=== PATIENT | female | born 1960 | race Caucasian/White ===

== ENCOUNTER → 2024-01-05 11:41 | Outpatient (REF) | payer OTHER, SELFPAY | LOC: HWRAD 11:41 | PROVIDERS: ATTENDING PHYSICIAN Family Medicine | DX: M54.50 Low back pain, unspecified (principal); M25.561 Pain in right knee; M25.562 Pain in left knee | CPT/HCPCS: 72110; 73562 ==

== ENCOUNTER → 2024-03-11 16:34 | Outpatient (REF) | payer OTHER, SELFPAY | LOC: PAVMRI 16:34 | PROVIDERS: ATTENDING PHYSICIAN Student in an Organized Health Care Education/Training Program; FAMILY PHYSICIAN Family Medicine | DX: S92.354G Nondisplaced fracture of fifth metatarsal bone, right foot, subsequent encounter for fracture with delayed healing (principal); M54.50 Low back pain, unspecified | CPT/HCPCS: 72148; 73718 ==

== ENCOUNTER → 2024-03-19 14:54 | Outpatient (REF) | payer OTHER, SELFPAY | LOC: HWWDC 14:54 | PROVIDERS: ATTENDING PHYSICIAN Obstetrics & Gynecology; FAMILY PHYSICIAN Family Medicine; REFERRING PHYSICIAN Internal Medicine Hematology & Oncology | DX: Z12.31 Encounter for screening mammogram for malignant neoplasm of breast (principal) | CPT/HCPCS: 77063; 77067 ==

== ENCOUNTER → 2024-05-24 14:19 | Outpatient (REF) | payer OTHER, SELFPAY ==
[2024-05-24 15:16] LABS: ALT (SGPT) 22 U/L (0-35); AST (SGOT) 31 U/L (14-36); Albumin 4.8 g/dl (3.5-5.0); Alkaline Phosphatase 67 U/L (38-126); Blood Urea Nitrogen 12 mg/dl (7-17); Calcium 9.9 mg/dl (8.4-10.2); Carbon Dioxide 28 mmol/L (22-30); Chloride 101 mmol/L (98-107); Glucose 95 mg/dl (70-99); Potassium 4.3 mmol/L (3.5-5.1); Sodium 141 mmol/L (135-145); Total Bilirubin 0.4 mg/dl (0.2-1.3); Total Protein 7.3 g/dl (6.3-8.2); eGFR > 60.00
== END ==
LOC: RAD 14:19
PROVIDERS: ATTENDING PHYSICIAN Family Medicine
DX: R10.84 Generalized abdominal pain (principal); R50.9 Fever, unspecified
CPT/HCPCS: 36415; 74177; 80053; Q9967

== ENCOUNTER → 2024-06-07 16:22 | Outpatient (REF) | payer OTHER, SELFPAY | LOC: RAD 16:22 | PROVIDERS: ATTENDING PHYSICIAN Orthopaedic Surgery Orthopaedic Surgery of the Spine; FAMILY PHYSICIAN Family Medicine | DX: R29.818 Other symptoms and signs involving the nervous system (principal) | CPT/HCPCS: 72131 ==

== ENCOUNTER 2024-09-21 08:00 | Emergency (ER) | payer OTHER, SELFPAY ==
[2024-09-21 08:07] VITALS: BP 117/74
--- NOTE | 2024-09-21 08:37 | ED.GENMED ---
History of Present Illness
General
Chief Complaint: Back Pain
Source: patient
Exam Limitations: none
Time Seen by Provider: 09/21/24 08:16
History of Present Illness
History of Present Illness:
64yoF with a history of osteoporosis presenting for evaluation of back pain. Patient was sitting in bed and watching TV 2 nights ago. She got out of bed and noticed that she had pain in her mid back. Pain has been constant since that time and is
worse with movement. Pain is worse on the right thoracic region. She also has some discomfort in her abdomen which she is unsure is related to IBS. She does not like taking medications. She took 1 dose of Tylenol yesterday morning and 1 dose of
Aleve last night without much relief. Her current pain is rated as an 8/10 in severity. She has a 'bad back' in her lower back but her current pain is different. She denies any fevers, incontinence, dysuria. No pain, paresthesias, weakness in
the lower extremities. 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
Past History
Past History
ED Past Medical History: Valvular disease (Mitral regurg) and Other (IBS)
ED Past Surgical History: Other (Lumpectomy, MOHS)
Social History
Tobacco: Non-smoker
Alcohol: None
Drug: None
Personal:
Living: with family
Family History
Family History: Other (n/c)
Phy Exam
General Physical Exam
General Presentation: well appearing
General age: appears stated age
General Skin: warm and dry
General Habitus: normal
General Mental: alert
ENT Exam
ENT Exam: normocephalic
Pulmonary Exam
Pulmonary Exam: lungs clear, no respiratory distress, no rales, no crackles and no rhonchi
Gastrointestinal Exam
Gastrointestinal Exam: soft, non distended and other (+Mild generalized abdominal tenderness. Abdomen soft, non-distended. No rebound or guarding. )
Neurological Exam
Neurological Exam: alert and no motor deficits (5/5 strength in bilateral lower extremities)
Jonathan Coma Scale
Eye Opening: Spontaneous
Verbal Response: Oriented
Motor Response: Obeys Commands
GCS Total Score: 15
Musculoskeletal Exam
Musculoskeletal Exam: other (+Tenderness at the midline and R paraspinal aspect of the thoracic region. No skin changes. )
Skin Exam
Skin Exam: normal color and warm/dry
Course
Orders/Labs/Results
Orders:
Orders
09/21/24 08:32
Ketorolac [Toradol] 15 mg IV NOW STA
09/21/24 08:33
CT Abd/pelvis W Iv Cont Urgent
Comment:
Reason For Exam: Mid back pain, R flank pain radiating to abdomen
09/21/24 08:52
Complete Blood Count/With Diff Urgent
Comprehensive Metabolic Panel Urgent
Lipase Urgent
Comment: ADD ON
Urinalysis Reflex To Culture Urgent
Date Specimen was Collected: 09/21/24
Time Specimen was Collected: 08:47
09/21/24 09:13
Add On- LAB Urgent
Tests Added?: lipase
09/21/24 11:16
Ketorolac [Toradol] 15 mg IV NOW STA
Lidocaine [Lidocaine 4% Patch] 2 patch TOPICAL ONCE ONE
Apply Lidocaine patch(s) to:: mid back
09/21/24 08:52
09/21/24 08:52
Vital Signs
Initial and Last Documented VS:
Initial Vital Signs
Temp Pulse Resp BP Pulse Ox
98.0 F 78 16 117/74 98
09/21/24 08:07 09/21/24 08:07 09/21/24 08:07 09/21/24 08:07 09/21/24 08:07
Last Documented Vital Signs
Temp Pulse Resp BP Pulse Ox
97.9 F 71 14 131/84 98
09/21/24 10:28 09/21/24 10:28 09/21/24 10:28 09/21/24 10:28 09/21/24 10:28
MDM/Problems Addressed
Differential Diagnosis Includes:
64yoF here with mid back pain x 2 days. Denies trauma. Worse with movement. Radiates to the abdomen. No red flags in history including no fevers, saddle anesthesia, incontinence. VSS. There is reproducible thoracic tenderness on exam. Differential
diagnosis includes but is not limited to: muscular strain, fracture, kidney stone, UTI, pyelonephritis
Initial ED plan: Check abdominal labs, UA, and CT abdomen. IV Toradol for pain.
*Critical Care Note
Total Time (30-74mins, 75-104mins- exclusive of procedures): Not Applicable
Update Note
Update Note:
Labs unremarkable including normal white count and renal function. UA bland without signs of infection or microscopic hematuria. CT is negative for acute findings. There is a stable mild compression fracture of T11 which is unchanged from prior
imaging. No new fractures. Prominent bilateral periuterine vessels incidentally seen which can be seen with pelvic congestion syndrome. She denies any issues with chronic pelvic pain. Suspect muscular pain. No indication for hospitalization at
this time. Patient has had slight improvement with Toradol. Offered prescription for oxycodone which she declines stating that is too strong for her. Recommended lidocaine patch, Tylenol, ibuprofen. Will also trial Robaxin. She was advised to
follow-up with her PCP, orthopedics, and pain management. ED return precautions discussed. She was discharged in stable condition.
ED Attending Note
-
Portions of this chart may have been created with voice recognition software.� Occasional wrong word or��sound alike� substitutions may have occurred due to the inherent limitations of voice recognition software.
Discharge Plan
Departure
Patient Disposition: Home (Routine Discharge)
Date of Disposition: 09/21/24
Time of Disposition: 11:16
Patient with high blood pressure during this ER visit?: No
Discharge Problem:
Acute thoracic back pain
Instructions: Back Pain
Prescriptions:
New
methocarbamol 500 mg tablet
500 mg PO Q6H PRN (Reason: muscle spasms) Qty: 20 0RF
No Action
multivitamin [Daily Multiple] 1 EACH tablet
1 ea PO DAILY
cetirizine 10 MG tablet
10 mg PO DAILY
risedronate [Actonel] 35 MG tablet
35 mg PO WEEKLY
Referrals:
Giuseppe Toribio MD [Active] -
Angelika Huerta MD [Family Provider] -
Activity Restrictions/Additional Instructions:
Take Tylenol 650mg and ibuprofen 400mg every 6 hours as needed for pain. Use lidocaine patches daily (12 hours on, 12 hours off). Take Robaxin (muscle relaxer) as needed.
Please follow-up with your family doctor, orthopedics, and pain management. Return to the ER with any new or worsening symptoms.
Interventions
Interventions:
*Risk Screen - Suicide Last Done: 09/21/24 08:07
*General Assessment Last Done: 09/21/24 08:49
*Neglect/Abuse Screening Last Done: 09/21/24 08:07
*ED COVID-19 Vaccine History Last Done: 09/21/24 08:49
*Nursing Disposition Last Done: 09/21/24 11:38
ED-Musculoskeletal Assessment Last Done: 09/21/24 08:49
Discharge Date and Time
Discharge Date/Time: 09/21/24 11:46
Print Language: GERMAN
[2024-09-21 08:49] VITALS: BMI 24.5
[2024-09-21] MEDS: TORADOL 15 MG IV ×2 (08:53→11:33)
[2024-09-21 09:11] LABS: % Basophils 0.6 % (0-2); % Eosinophils 0.8 % (0-6); % Immature Granulocytes 0.2 % (0-0.5); % Lymphocytes 24.1 % (20.5-51.1); % Monocytes 6.1 % (1.7-9.3); % Neutrophils 68.2 % (42.2-75.2); Absolute Lymphocytes 1.2 10^3/uL (1.2-3.4); Absolute Monocytes 0.3 10^3/uL (0.1-0.6); Absolute Neutrophils 3.4 10^3/uL (1.4-6.5); Hemoglobin 12.9 g/dL (12.0-16.0); Mean Corp Hgb Conc. 33.1 g/dL (33.0-37.0); Mean Corpuscular Hgb 30.1 pg (27.0-31.0); Mean Corpuscular Volume 90.9 fL (81.0-99.0); Mean Platelet Volume 9.4 fL (7.4-10.4); Nucleated Red Blood Cells % 0 %; Platelet Count 228 10^3/uL (130-400); Red Blood Cell Count 4.29 10^6/uL (4.20-5.40); Red Cell Dist. Width 14.1 % (11.5-14.5); White Blood Cell Count 4.9 10^3/uL (4.8-10.8)
[2024-09-21 09:24] LABS: ALT (SGPT) 16 U/L (0-35); AST (SGOT) 25 U/L (14-36); Albumin 4.5 g/dl (3.5-5.0); Alkaline Phosphatase 73 U/L (38-126); Blood Urea Nitrogen 15 mg/dl (7-17); Calcium 9.5 mg/dl (8.4-10.2); Carbon Dioxide 30 mmol/L (22-30); Chloride 102 mmol/L (98-107); Estimated Creatinine Clearance 68 ml/min; Glucose 95 mg/dl (70-99); Potassium 4.2 mmol/L (3.5-5.1); Sodium 139 mmol/L (135-145); Total Bilirubin 0.4 mg/dl (0.2-1.3); eGFR > 60.00
[2024-09-21 09:34] LABS: Lipase 84 U/L (23-300)
[2024-09-21 09:42] LABS: Urine Albumin Trace (Neg - Trace); Urine Bilirubin Negative (Negative); Urine Character Clear (Clear); Urine Color Yellow; Urine Glucose Negative (Negative); Urine Ketone Negative (Negative); Urine Leukocyte Negative (Negative); Urine Nitrite Negative (Negative); Urine Occult Blood Negative (Negative); Urine Urobilinogen Negative (Neg - 1+)
[2024-09-21 10:28] VITALS: BP 131/84
[2024-09-21] MEDS: LIDOCAINE 4% PATCH 2 PATCH TOPICAL (11:33)
== END 2024-09-21 11:46 | disposition home or self-care (01) ==
LOC: EMR 08:00
PROVIDERS: Physician Assistant; EMERGENCY PHYSICIAN Emergency Medicine; FAMILY PHYSICIAN Family Medicine
DX: M54.6 Pain in thoracic spine (principal); K58.9 Irritable bowel syndrome, unspecified; I34.0 Nonrheumatic mitral (valve) insufficiency; M81.0 Age-related osteoporosis without current pathological fracture
CPT/HCPCS: 99284; 96374; 96376; 74177; 80053; 81003; 83690; 85025; Q9967

== ENCOUNTER → 2024-10-05 08:10 | Outpatient (REF) | payer OTHER, SELFPAY | LOC: MRI 3T 08:10 | PROVIDERS: ATTENDING PHYSICIAN Family Medicine | DX: M54.14 Radiculopathy, thoracic region (principal) | CPT/HCPCS: 72146 ==

== ENCOUNTER 2024-10-29 21:29 | Inpatient (IN) | payer OTHER, SELFPAY ==
[2024-10-29 11:33] VITALS: BP 125/84
[2024-10-29 12:20] LABS: % Basophils 0.7 % (0-2); % Eosinophils 0.3 % (0-6); % Immature Granulocytes 0.2 % (0-0.5); % Lymphocytes 29.4 % (20.5-51.1); % Monocytes 5.6 % (1.7-9.3); % Neutrophils 63.8 % (42.2-75.2); Absolute Lymphocytes 1.7 10^3/uL (1.2-3.4); Absolute Monocytes 0.3 10^3/uL (0.1-0.6); Absolute Neutrophils 3.8 10^3/uL (1.4-6.5); Hematocrit 37.3 % (37.0-47.0); Hemoglobin 12.6 g/dL (12.0-16.0); Mean Corp Hgb Conc. 33.8 g/dL (33.0-37.0); Mean Corpuscular Hgb 30.7 pg (27.0-31.0); Mean Corpuscular Volume 90.8 fL (81.0-99.0); Mean Platelet Volume 9.8 fL (7.4-10.4); Nucleated Red Blood Cells % 0 %; Platelet Count 262 10^3/uL (130-400); Red Blood Cell Count 4.11 10^6/uL (4.20-5.40); Red Cell Dist. Width 13.8 % (11.5-14.5); White Blood Cell Count 5.9 10^3/uL (4.8-10.8)
[2024-10-29 12:30] LABS: ALT (SGPT) 21 U/L (0-35); AST (SGOT) 26 U/L (14-36); Albumin 4.5 g/dl (3.5-5.0); Alkaline Phosphatase 74 U/L (38-126); Blood Urea Nitrogen 14 mg/dl (7-17); Calcium 10.8 mg/dl (8.4-10.2); Carbon Dioxide 29 mmol/L (22-30); Chloride 100 mmol/L (98-107); Glucose 105 mg/dl (70-99); Potassium 4.2 mmol/L (3.5-5.1); Sodium 137 mmol/L (135-145); Total Bilirubin 0.4 mg/dl (0.2-1.3); Total Protein 7.1 g/dl (6.3-8.2); eGFR > 60.00
[2024-10-29 14:27] LABS: Urine Albumin 2+ (Neg - Trace); Urine Bilirubin Negative (Negative); Urine Character Clear (Clear); Urine Color Yellow; Urine Glucose Negative (Negative); Urine Ketone Negative (Negative); Urine Leukocyte Negative (Negative); Urine Nitrite Negative (Negative); Urine Occult Blood 4+ (Negative); Urine Specific Gravity 1.015 (<1.030); Urine Urobilinogen Negative (Neg - 1+)
[2024-10-29 14:33] LABS: Urine Red Blood Cell 21-25 /HPF (0-2); Urine Squamous Cell 0-2 /LPF (Few); Urine White Cell 0-2 /HPF (0-5)
--- NOTE | 2024-10-29 15:22 | ED.GENMED ---
History of Present Illness
General
Chief Complaint: Back Pain
Source: patient and spouse
Exam Limitations: none
Time Seen by Provider: 10/29/24 14:45
Nursing documentation reviewed up to this point in time: agreed with
History of Present Illness
History of Present Illness:
Patient presents to ED secondary to worsening mid back pain this afternoon, when she reached for an object. Patient unfortunately has had ongoing back pain since August. Recent MRI spine revealed new T8 compression fracture. Patient does have
history of chronic back pain secondary to stenosis along with osteoporosis. Denies fever or chills. Denies urinary or bowel incontinence. Denies loss of sensation. Patient is reporting intermittent lower leg weakness, which has been chronic.
Patient was evaluated by Dr. Patel, back/pain management physician last week. Back brace as well as different medications were recommended, which not has helped with her pain. Patient has been told that she is not a candidate for surgical
intervention, secondary to severe osteoporosis.
Past History
Past History
ED Past Medical History: Valvular disease (Mitral regurg) and Other (IBS)
ED Past Surgical History: Other (Lumpectomy, MOHS)
Social History
Tobacco: Non-smoker
Alcohol: None
Drug: None
Personal:
Living: with family
Family History
Family History: Other (n/c)
Review of Systems
Review of Systems
Allergies reviewed?: Yes
All Other Systems: ROS reviewed and negative except as documented in HPI and ROS
Constitutional: Reports no symptoms; Denies fever or chills
Respiratory: Reports no symptoms; Denies trouble breathing
Cardiac: Reports no symptoms; Denies chest pain
ABD/GI: Reports no symptoms
: Reports no symptoms
Musculoskeletal: Reports neck pain and back pain
Skin: Reports no symptoms
Neurological: Reports weakness; Denies dizzy, headache or numbness
Phy Exam
Physical Exam
Physical Exam:
Physical Exam
General: mild painful distress, not acutely ill. afebrile
Head: nc/at. eommi
Neck: supple. normal range of motion. no midline tenderness. mild tenderness noted at base.
Heart: s1/s2 regular rate and rhythm, no murmur.
Lungs: no acute respiratory distress. clear bilaterally
Abdomen: normal bowel sounds. not tender.
Back: no midline tenderness
Neuro: alert and oriented x 3. no focal neurological deficits. normal gait.
Skin: no rash
Psychiatric: well kept. interactive and cooperative
Extremities: no edema. no calf tenderness.
Course
Orders/Labs/Results
Orders:
Orders
10/29/24 12:05
Complete Blood Count/With Diff Urgent
Comprehensive Metabolic Panel Urgent
Magnesium Urgent
Comment: ADD ON
Phosphorus Urgent
Comment: ADD ON
10/29/24 14:00
Urinalysis Reflex To Culture Urgent
Date Specimen was Collected: 10/29/24
Time Specimen was Collected: 11:38
Urine Microscopic Reflex Cult Urgent
10/29/24 15:13
HYDROmorphone [Dilaudid] 0.25 mg IV NOW STA
Ketorolac [Toradol] 30 mg IV NOW STA
US Renal Only W/O Bladder Urgent
Comment:
Reason For Exam: hematuria with flank pain
10/29/24 17:11
CT Abd/pel Without Iv Or Oral Urgent
Comment:
Reason For Exam: left flank pain with hematuria, w abnormal US
HYDROmorphone [Dilaudid] 0.5 mg IV NOW STA
10/29/24 20:26
Aztreonam [Azactam] 1,000 mg IV NOW STA
Sterile Water [Sterile Water For Injection] 10 ml IV NOW STA
10/29/24 20:30
Urine Culture Routine
CLAUDIA Source: Urine
Specimen Description:
Obtained by: Bladder
Date Specimen was Collected: 10/30/24
Time Specimen was Collected: 05:09
0.9% Sodium Chloride 1000 ml [Nss] 1,000 ml IV 100 mls/hr
10/29/24 20:35
Add On- LAB Urgent
Tests Added?: mag, phos
10/29/24 20:38
Admit/Transfer Patient As Directed
Co-Sign Provider:
Level of Care: Inpatient admission
Assign to:: Medical/Surgical
Physician / Group: abhinav bennett
Diagnosis: left ureteral colic conc for obstructing uropathy
Reason for Hospitalization: left ureteral colic conc for obstructing uropathy
Expected length of stay greater than two midnights?: Yes
ELOS- Estimated Length of Stay in days: 3
I certify the patient meets the requirements for IP care: Yes
Code Status As Directed
Resuscitation Status: Full Code
10/29/24 20:45
PRN Pain Medication Management As Directed
May give lesser potent ordered pain med per pt: Yes
preference::
Protocol:: Medication orders for pain may be administered in a
manner that supports deferring to patient preference
when the pt is:
- Requesting an ordered lesser potent pain medication.
Least to most potent pain medications are defined
as: acetaminophen < NSAID < tramadol < opioids
(morphine, oxycodone, hydromorphone).
- Requesting a lesser dose of the same medication IF
ORDERED.
- Requesting a less intrusive route of administration
if both routes are prescribed by the provider (PO <
IV).
10/29/24 20:46
UROLOGY CONSULT Routine
Consulting Provider: Sergo Franco
Was physician already notified: Yes
Comment: Left ureteral colic concern for obstructive uropathy
10/29/24 20:59
Tamsulosin [Flomax] 0.4 mg PO NOW STA
10/29/24 21:57
Acetaminophen [Tylenol] 650 mg PO Q4HPRN PRN
HYDROmorphone [Dilaudid] 0.5 mg IV Q4HPRN PRN
HYDROmorphone [Dilaudid] 1 mg IV Q4HPRN PRN
Ondansetron Injectable [Zofran] 4 mg IV Q6HPRN PRN
Polyethylene Glycol Powder [Miralax] 17 grams PO DAILYPRN PRN
Temazepam [Restoril] 15 mg PO HSPRN PRN
10/29/24 21:57
Activity As Directed
Activity Level: As Tolerated
Intake/ Output As Directed
Frequency: Per unit guidelines
Pneumatic Compression Sleeves As Directed
Type: Knee high
Vital Signs As Directed
Frequency: Per unit guidelines
Weight As Directed
Frequency: Daily
Pt Eval And Treat Routine
Activity Level: As Tolerated
DX Deep Vein Thrombosis Video Routine
10/30/24 06:00
Aztreonam [Azactam] 1,000 mg IV Q8H
10/30/24 07:49
Cardiovascular Evaluation IN AM
Complete Blood Count/With Diff IN AM
Comprehensive Metabolic Panel IN AM
10/30/24 18:00
Ascorbic Acid [Vitamin C] 500 mg PO QPM
Calcium Carbonate [Oscal Chandan 500] 500 mg PO QPM
Cholecalciferol (Vitamin D3) [VITAMIN D3 (cholecalciferol)] 25 mcg PO QPM
Magnesium Oxide 250 mg PO QPM
Multivitamin [Theragran] 1 tablet PO QPM
Sennosides [Senokot] 17.2 mg PO QPM
Abnormal Lab Results
10/29/24 10/29/24
12:05 14:00
RBC 4.11 L 10^6/uL
(4.20-5.40)
Glucose 105 H mg/dl
(70-99)
Calcium 10.8 H mg/dl
(8.4-10.2)
Ur Occult Blood Reflex 4+ A
(Negative)
Urine RBC 21-25 A /HPF
(0-2)
Urine Albumin (Reflex) 2+ A
(Neg - Trace)
10/29/24 12:05
10/29/24 12:05
Vital Signs
Initial and Last Documented VS:
Initial Vital Signs
Temp Pulse Resp BP Pulse Ox
97.2 F 93 16 125/84 97
10/29/24 11:33 10/29/24 11:33 10/29/24 11:33 10/29/24 11:33 10/29/24 11:33
Last Documented Vital Signs
Temp Pulse Resp BP Pulse Ox
97.8 F 89 18 108/67 98
10/30/24 11:42 10/30/24 11:42 10/30/24 11:42 10/30/24 11:42 10/30/24 11:42
MDM/Problems Addressed
MDM/Problems Addressed:
Renal ultrasound reveals left calyceal dilation, suggestive of potential obstructive ureteral stone. As such, decision made to obtain CT abdomen pelvis, kidney stone protocol, with findings concerning for obstructive renal stone. In light of
patient's significant pain, now multifactorial, patient will be admitted for further evaluation and treatment.
*Critical Care Note
Total Time (30-74mins, 75-104mins- exclusive of procedures): Not Applicable
ED Attending Note
-
Portions of this chart may have been created with voice recognition software.� Occasional wrong word or��sound alike� substitutions may have occurred due to the inherent limitations of voice recognition software.
Discharge Plan
Departure
Patient Disposition: Admit
Date of Disposition: 10/29/24
Time of Disposition: 19:52
Admit to: Med/Surg
Presentation/result/management discussed w/ accepting MD/DO: Hospitalist
Discharge Problem:
Intractable back pain, Renal colic
Interventions
Interventions:
*Risk Screen - Suicide Last Done: 10/29/24 11:38
*General Assessment Last Done: 10/29/24 15:27
*Neglect/Abuse Screening Last Done: 10/29/24 11:38
*ED- Fall Risk Assessment Last Done: 10/29/24 15:27
*ED COVID-19 Vaccine History Last Done: 10/29/24 15:27
*Nursing Disposition Last Done: 10/29/24 21:50
ED-Musculoskeletal Assessment Last Done: 10/29/24 15:26
Discharge Date and Time
Discharge Date/Time: 10/29/24 21:50
[2024-10-29 15:26] VITALS: BMI 23.4
[2024-10-29] MEDS: DILAUDID 0.25 MG IV (15:38)
[2024-10-29] MEDS: TORADOL 30 MG IV (15:38)
[2024-10-29] MEDS: DILAUDID 0.5 MG IV ×2 (17:16→23:17)
[2024-10-29 17:57] VITALS: BP 120/76
--- NOTE | 2024-10-29 19:55 | HPS.HSE ---
Family Physician
-
Family Physician: Angelika Huerta MD
Chief Complaint
-
Left flank pain, hematuria, dysuria today
History of Present Illness
64-year-old female who states she has had ongoing back pain since August with recent MRI revealing a new T8 compression fracture. She reports she was squatting down to move her bathroom rug when she had a sudden left flank pain radiating around to
left front of her abdomen and across to the right side that caused her to scream in pain. She thought this was due to her T8 compression fracture she has had for the past 40 days however this was an 8 lower area. She is also complaining of dysuria
postvoiding and some slight hematuria while here in the ER. She has family history sister of renal calculi niece and nephew both with renal calculi. She denies fever, chills, nausea, vomiting, diarrhea, chest pain, palpitations, cough, shortness
of breath, rash. She has past medical history of T8 compression fracture, severe osteoporosis, spinal stenosis, insomnia
She was evaluated by Dr. Patel her back and pain management physician last week it was recommended she wear a back brace as well as different medication regimen which has not helped with her pain. She was told that she is not a candidate for
surgical intervention secondary to severe osteoporosis. In the ER she was noted to have The distal left ureter was difficult to visualize on the CT
Medical History
Past Medical History
Past Medical History: Reports Other
Additional Past Medical History:
Insomnia
T8 compression fracture
Severe osteoporosis
Osteopenia
Noninvasive ductal carcinoma left breast 2004
Past Surgical History: Reports Other
Additional Past Surgical History:
Noninvasive ductal carcinoma left breast 2004 status post lumpectomy
Social History
Tobacco: Non-smoker
Alcohol: Occasional (2 glasses of wine Monday and Monday)
Drug: None
Personal:
Living: With Family ()
Employment: Employed ([employer] is currently on FMLA due T8 compression fractures)
Family History
Family History: Other (Sister renal calculi, niece and nephew renal calculi)
Allergies / Home Medications
Allergies reflects when Allergies were last updated in [employer].
Home Medications with original date entered in [employer]
Allergy/Medication List:
Allergies
Allergy/AdvReac Type Severity Reaction Status Date / Time
cephalexin [From Keflex] Allergy Unknown Verified 09/21/24 08:09
ciprofloxacin [From Cipro] Allergy Unknown Verified 09/21/24 08:09
ibuprofen [From Advil] Allergy Unknown Verified 09/21/24 08:09
lidocaine Allergy states Verified 10/29/24 20:31
gets dizzy
Sulfa (Sulfonamide Allergy Unknown Verified 09/21/24 08:09
Antibiotics)
Home Medications
ascorbic acid (vitamin C) 500 mg tablet (Vitamin C) 500 mg PO QPM 10/29/24
calcium carbonate 500 mg PO QPM 10/29/24
cholecalciferol (vitamin D3) 25 mcg (1,000 unit) tablet (Vitamin D3) 25 mcg PO QPM 10/29/24
magnesium oxide 250 mg PO QPM 10/29/24
melatonin 5 mg tablet 5 mg PO HSPRN PRN when temazepam not taken 10/29/24
polyethylene glycol 3350 17 gram oral powder packet (Miralax) 17 g PO DAILYPRN PRN constipation 10/29/24
sennosides 8.6 mg tablet (senna) 17.2 mg PO QPM 10/29/24
temazepam 15 mg capsule 15 mg PO HSPRN PRN sleep 10/29/24
therapeutic multivitamin 1 tab PO QPM 10/29/24
Review of Systems
-
History Source: Patient and Family ( at bedside)
A 12 point ROS was completed and negative except as noted: Yes
Constitutional: Denies Fever, Fatigue or Chills
EENT: Denies Sore Throat or Runny Nose
Respiratory: Denies Cough or Trouble Breathing
Cardiac: Denies Chest Pain, Diaphoresis, Palpitations or Syncope
Abdomen/GI: Reports Abdominal Pain (Left flank, left lateral abdomen over left ureter to suprapubic area); Denies Nausea, Vomiting, Diarrhea or Constipated
: Reports Dysuria (Today while in ER), Flank Pain (Left flank at level of T10) and Other (1 episode hematuria in ER); Denies Frequency, Incontinence, Difficulty Voiding or Urgency
Musculoskeletal: Denies Joint Pain or Edema
Skin: Denies Itching or Rash
Neurological: Denies Dizzy, Headache or Weakness
Endocrine: Reports No Symptoms
Hematologic/Lymphatic: Reports No Symptoms
Psych: Reports Calm
Physical Exam
Vital Signs
Vital Signs
Temp Pulse Resp BP Pulse Ox
97.2 F 89 15 120/76 99
10/29/24 11:33 10/29/24 17:57 10/29/24 17:57 10/29/24 17:57 10/29/24 17:57
Physical Exam
General: Conversant and Pain; No Fever or Chills
HEENT: NormoCephalic, Anicteric, Moist mucous membranes, PERRLA, [place] Conjunctivae and No Ptosis
Respiratory: Clear; No Wheezes, Rales or Rhonchi
Cardiac: S1/S2 and Regular Rhythm; No Murmur, Rub, Gallop or Peripheral Edema
Breast: Deferred by me
GI: Soft, Non Distended, Normal Bowel Sounds, Tender (Left flank, left lateral abdomen over left ureter to suprapubic area) and No Hepatosplenomegaly
Genito-urinary: Costovertebral angle tend (Left)
Musculoskeletal: No Clubbing, No Cyanosis, No Edema and Other (Chronic tenderness at T8 along nerve root pathway secondary to known compression fracture)
Skin: Warm and Dry; No Rash
Neuro: AO x 3, No Motor Deficits, Nonfocal/grossly intact, Cranial Nerves Intact and No Sensory Deficits; No Slurred Speech, Facial Droop, Tremors or Sedated
Laboratory Results
-
10/29/24 12:05
10/29/24 12:05
Laboratory Results
Total Bilirubin 0.4 mg/dl (0.2-1.3) 10/29/24 12:05
AST 26 U/L (14-36) 10/29/24 12:05
ALT 21 U/L (0-35) 10/29/24 12:05
Alkaline Phosphatase 74 U/L (38-126) 10/29/24 12:05
Impression/Plan
-
Impression/plan:
Observation MedSurg
# Left ureteral colic secondary to left obstructive uropathy
-Consult Dr. Franco urology
-IV Azactam due to multiple drug allergies
-IV NSS 100 cc/h
-Tylenol as needed fever
-IV Dilaudid as needed pain, Zofran as needed nausea
-Follow CBC, CMP, urine culture
Renal ultrasound:Mild diffuse left calyceal dilation, which raises the possibility of obstructive uropathy.
No definite nephrolith identified within the left kidney, with a 2 mm nephrolith seen within the upper pole the left kidney on prior CT examination.
These findings raise the possibility of an obstructing left ureteral calculus.
CT abdomen pelvis without IV or oral contrast:
1. Mild left pelvicalyceal and ureteral dilation. 2 mm nephrolith seen in the upper pole the left kidney on CT of September 21, 2024 is no longer present.
Findings suggest a left ureteral calculus. The distal left ureter is difficult to visualize and there are multiple calcifications within the left pelvis.
One of these calcifications is likely a distal left ureteral calculus.
If more confident demonstration of left distal ureteral calculus is desired, consideration could be given to additional delayed CT imaging after intravenous administration of IV contrast agent.
2. Tiny 1 mm nephrolith in the upper pole the right kidney. No evidence for right ureteral calculus.
3. Grade 2 spondylolisthesis at L4-5, stable with left-sided pars defect and right-sided pedicle defect. Stable mild anterior compression deformity of T11 vertebral body.
#T8 compression fracture
#Chronic severe osteoporosis/osteopenia
Dr. Patel her back and pain management physician last week it was recommended she wear a back brace as well as different medication regimen
-Patient takes calcium carbonate 500 mg every afternoon with vitamin D3 25 mcg p.o. every afternoon
#Hypomagnesemia
-Continue Mag-Ox to 50 mg p.o. every afternoon
-Check mag level
#Insomnia
-Patient takes temazepam
DVT prophylaxis
SCDs
Full code
--- NOTE | 2024-10-29 20:23 | W.PN.UPDATE ---
Update Note
Progress Note Update
This note serves as an addendum to the H&P by washroom operator WON
Marleen JUAREZ
HPI
64F HX IBS, valvular heart dz seen at ER;
- pw o worsening mid back pain this afternoon, when she reached for an object.
- report ongoing back pain since August.
- Recent MRI spine revealed new T8 compression fracture.
- HX chronic back pain secondary to stenosis along with osteoporosis.
ROS
Denies fever or chills.
Denies urinary or bowel incontinence.
Denies loss of sensation.
Patient is reporting intermittent lower leg weakness, which has been chronic.
Patient was evaluated by Dr. Patel, back/pain management physician last week. Back brace as well as different medications were recommended, which not has helped with her pain.
Patient has been told that she is not a candidate for surgical intervention, secondary to severe osteoporosis.
VSS
10/29/24
11:33
Temp 97.2 F
Pulse 93
Resp Rate 16
Blood pressure 125/84
SaO2 97
Oxygen Mode of Delivery Room air
PE
Gen: in pain distress, not toxic loking
HEENT: anicteric
Neck: supple
Lungs: clear bilaterally
Cor: RRR S1 S2
Abdomen: soft, NT, NG
:Lt renal angle tenderness
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
MS: no edema
Psych: interactive , cooperative
Laboratory Tests
10/29/24 10/29/24
12:05 14:00
WBC 5.9
Hgb 12.6
Creatinine 0.8
eGFR > 60.00
Calcium 10.8 H
Urine RBC 21-25 A
Urine WBC (Reflex) 0-2
12/07/22 ECHO: LVEF 60, nl diastolic function
US Renal Only W/O Bladder
- Normal appearance of the right kidney.
- Mild diffuse left calyceal dilation, which raises the possibility of obstructive uropathy. No definite nephrolith identified within the left kidney, with a 2 mm nephrolith seen within the upper pole the left kidney on prior CT examination. These
findings raise the possibility of an obstructing left ureteral calculus.
CT of the abdomen and pelvis without oral and without intravenous contrast
- Mild left pelvi-calyceal and ureteral dilation. 2 mm nephrolith seen in the upper pole the left kidney on CT of September 21, 2024 is no longer present.
- Findings suggest a left ureteral calculus. The distal left ureter is difficult to visualize and there are multiple calcifications within the left pelvis. One of these calcifications is likely a distal left ureteral calculus.
- If more confident demonstration of left distal ureteral calculus is desired, consideration could be given to additional delayed CT imaging after intravenous administration of IV contrast agent.
- Tiny 1 mm nephrolith in the upper pole the right kidney. No evidence for right ureteral calculus.
-Grade 2 spondylolisthesis at L4-5, stable with left-sided pars defect and right-sided pedicle defect. Stable mild anterior compression deformity of T11 vertebral body.
10/05/24 MRI Tx spine
- Moderate compression deformity of T8, with increased STIR signal suggesting acute to subacute fracture.
- Mild retropulsion of the posterior and inferior margin of the T8 vertebral body, compresses the anterior thecal sac, with no evidence for spinal cord compression.
- Minimal anterior loss of height of T11 vertebral body, stable dating back to CT scan of May 24, 2024, compatible with old compression deformity.
ASSESSMENT & PLAN
Pending Rx reconciliation
Mid back pain
Likely ureteral colic pain due to distal left ureteral calculus rather than subacute T8 compression Fx ( 10/05/23)
POS UA for Hematuria but does not look infected
HX Keflex and Cipro allergy
- At risk for infectd stone and sepsis
- narcotic PRN analgesia
- NPO and IVF
- Empiric IV Aztreonam
- Uro consult
subacute T8 compression Fx ( 10/05/23)
- PT/OT
DVT Px: SCD
Full code
IP MS
--- NOTE | 2024-10-29 21:00 | CONS.URO ---
Consultation
-
Requesting Provider: ED
Performing Provider: Salvador
Reason for Consultation: left ureteral stone
Medical History
History of Present Illness
Pt presented to ED with abrupt onset of left flank pain plus hematuria and dysuria but no fever/chills/ sweats.
Past Medical History
Past Medical History: Other (Insomnia T8 compression fracture Severe osteoporosis Osteopenia Noninvasive ductal carcinoma left breast 2004)
Past Surgical History: Other (breast lumpectomy)
Social History
Personal:
Allergies/Home Medications
Allergies
Allergy/AdvReac Type Severity Reaction Status Date / Time
cephalexin [From Keflex] Allergy Unknown Verified 09/21/24 08:09
ciprofloxacin [From Cipro] Allergy Unknown Verified 09/21/24 08:09
ibuprofen [From Advil] Allergy Unknown Verified 09/21/24 08:09
lidocaine Allergy states Verified 10/29/24 20:31
gets dizzy
Sulfa (Sulfonamide Allergy Unknown Verified 09/21/24 08:09
Antibiotics)
Home Medications
�Medication �Instructions �Recorded �Confirmed �Type
ascorbic acid (vitamin C) 500 mg 500 mg PO QPM 10/29/24 10/29/24 History
tablet (Vitamin C)
calcium carbonate 500 mg PO QPM 10/29/24 10/29/24 History
cholecalciferol (vitamin D3) 25 25 mcg PO QPM 10/29/24 10/29/24 History
mcg (1,000 unit) tablet (Vitamin
D3)
magnesium oxide 250 mg PO QPM 10/29/24 10/29/24 History
melatonin 5 mg tablet 5 mg PO HSPRN PRN when temazepam 10/29/24 10/29/24 History
not taken
polyethylene glycol 3350 17 gram 17 g PO DAILYPRN PRN constipation 10/29/24 10/29/24 History
oral powder packet (Miralax)
sennosides 8.6 mg tablet (senna) 17.2 mg PO QPM 10/29/24 10/29/24 History
temazepam 15 mg capsule 15 mg PO HSPRN PRN sleep 10/29/24 10/29/24 History
therapeutic multivitamin 1 tab PO QPM 10/29/24 10/29/24 History
Physical Exam
Vital Signs
Vital Signs
Temp Pulse Resp BP Pulse Ox
97.2 F 89 15 120/76 99
10/29/24 11:33 10/29/24 17:57 10/29/24 17:57 10/29/24 17:57 10/29/24 17:57
Lab / Testing Results
Laboratory Results
10/29/24 12:05
10/29/24 12:05
Physical Exam
adult female in NAD
General: No Apparent Distress
Genito-urinary: No Costovertebral Tend
Skin: Warm
Neuro: Awake, Alert and Oriented
Psych: Calm
Assessment / Plan
-
likely 1-2 mm distal left ureteral stone
no signs of sytsemic infection
Rec:
outpatient trial of stone passage: Tamsulosin daily + Naproxen 500 mg bid + straining of urine
Data Reviewed
-
CT Scan: Image personally visualized and interpreted
Old Records: Reviewed
[2024-10-29 21:07] LABS: Magnesium 2.2 mg/dl (1.6-2.3); Phosphorus 4.2 mg/dl (2.5-4.5)
[2024-10-29] MEDS: AZACTAM 1000 MG IV (21:09)
[2024-10-29] MEDS: STERILE WATER FOR INJECTION 10 ML IV (21:17)
[2024-10-29 21:22] VITALS: BP 129/81
--- NOTE | 2024-10-29 22:00 | PTCARENOTE ---
Pt arrived to [facility] from ED, ambulated independently from stretcher to bed. AAOx3, mild pain throughout abdomen but denies the need for pain meds at this time. Oriented to room, call puri within reach. Plan of care reviewed with pt and
at bedside.
[2024-10-29 22:04] VITALS: BP 139/79; BMI 22.5
[2024-10-29] MEDS: NSS 1000 IV (22:21)
[2024-10-29] MEDS: FLOMAX 0.4 MG PO (22:21)
[2024-10-29] MEDS: RESTORIL 15 MG PO (22:51)
[2024-10-30] MEDS: AZACTAM 1000 MG IV (05:11)
[2024-10-30] MEDS: STERILE WATER FOR INJECTION 10 ML IV (05:11)
[2024-10-30] MEDS: DILAUDID 0.5 MG IV (05:11)
[2024-10-30 07:21] VITALS: BP 103/64
[2024-10-30] MEDS: NSS 1000 IV (07:31)
[2024-10-30 09:03] VITALS: BP 130/70
[2024-10-30 09:09] LABS: % Basophils 0.6 % (0-2); % Eosinophils 1.5 % (0-6); % Immature Granulocytes 0.3 % (0-0.5); % Lymphocytes 39.6 % (20.5-51.1); % Monocytes 8.6 % (1.7-9.3); % Neutrophils 49.4 % (42.2-75.2); Absolute Eosinophils 0.1 10^3/uL (0-0.7); Absolute Lymphocytes 1.3 10^3/uL (1.2-3.4); Absolute Monocytes 0.3 10^3/uL (0.1-0.6); Absolute Neutrophils 1.7 10^3/uL (1.4-6.5); Hematocrit 31.4 % (37.0-47.0); Hemoglobin 10.4 g/dL (12.0-16.0); Mean Corp Hgb Conc. 33.1 g/dL (33.0-37.0); Mean Corpuscular Hgb 30.1 pg (27.0-31.0); Mean Corpuscular Volume 90.8 fL (81.0-99.0); Mean Platelet Volume 9.8 fL (7.4-10.4); Nucleated Red Blood Cells % 0 %; Platelet Count 206 10^3/uL (130-400); Red Blood Cell Count 3.46 10^6/uL (4.20-5.40); Red Cell Dist. Width 13.9 % (11.5-14.5); White Blood Cell Count 3.4 10^3/uL (4.8-10.8)
[2024-10-30 09:14] LABS: ALT (SGPT) 16 U/L (0-35); AST (SGOT) 22 U/L (14-36); Albumin 3.5 g/dl (3.5-5.0); Alkaline Phosphatase 62 U/L (38-126); Blood Urea Nitrogen 14 mg/dl (7-17); Calcium 8.2 mg/dl (8.4-10.2); Carbon Dioxide 22 mmol/L (22-30); Chloride 108 mmol/L (98-107); Estimated Creatinine Clearance 79 ml/min; Glucose 81 mg/dl (70-99); HDL Cholesterol 63 mg/dl; LDL Cholesterol, Calculated 113 mg/dl; Potassium 3.4 mmol/L (3.5-5.1); Sodium 139 mmol/L (135-145); Total Bilirubin 0.7 mg/dl (0.2-1.3); Total Cholesterol 189 mg/dl (50-199); Total Protein 5.4 g/dl (6.3-8.2); Triglyceride 65 mg/dl (10-149); Very Low Density Lipoprotein 13 mg/dl (0-30); eGFR > 60.00
[2024-10-30] MEDS: KCL 40 MEQ PO (09:56)
--- NOTE | 2024-10-30 09:57 | W.PN.HOSP.TC ---
Today's Communication/Plan
-
Oral potassium
Resume diet
Await urology input
Assessment / Plan
Assessment / Plan
Gen-AAOx3, NAD
HEENT-NC, AT, anicteric, clear oral mm
Neck-supple
CV-reg, no M, +S1/S2
Lungs-clear B/L
Abd-soft, NT, ND
Ext-no edema
Musculoskeletal-no cyanosis, clubbing
Skin-warm and dry
Neuro-grossly non-focal
Psych-calm, cooperative
Renal colic -left-sided, due to distal ureteral stone. CT abdomen/pelvis noted. Hematuria noted. No signs or symptoms of sepsis. Urinalysis without pyuria. Can discontinue further antibiotics.
Urology following. No plans for intervention. Okay to resume diet.
Patient has oxycodone at home, 5 mg tabs. I offered to increase the dose to 10 mg as she claims that the 5 mg dose is not helping. She declined.
T8 vertebral compression fracture -noted on thoracic MRI in September. Due to underlying osteoporosis. Follow-up with pain management after discharge.
Seen by PT today, outpatient PT recommended.
She does have a back brace but she does not wear it as she claims that it makes her pain worse.
Hypokalemia -replete orally.
History of left breast cancer
Full code
Dispo -can discharge if cleared by urology. Outpatient follow-up.
Anticipated Discharge: Today
Subjective/Interval History
-
Date of Service: October 30, 2024
Patient seen and examined. Complaining of left flank pain, improved compared to yesterday.
Objective Data
-
Labs:
Laboratory Results
10/30/24
07:49
WBC 3.4 L
Hgb 10.4 L
Hct 31.4 L
Plt Count 206 D
Sodium 139
Potassium 3.4 L
Chloride 108 H
Carbon Dioxide 22
BUN 14
Creatinine 0.6
Glucose 81
Calcium 8.2 L D
Total Bilirubin 0.7
AST 22
ALT 16
Alkaline Phosphatase 62
Vital Signs:
Vital Signs
Temp Pulse Resp BP Pulse Ox
97.9 F 72 16 103/64 95
10/30/24 07:21 10/30/24 07:21 10/30/24 07:21 10/30/24 07:21 10/30/24 07:21
I&O
10/29/24 10/30/24 10/31/24
06:59 06:59 06:59
Intake Total 400 / 400
Output Total 200 / 200 100 / 100
Balance 200 / 200 -100 / -100
Review of Systems
-
History Source: Patient
All other systems: Reviewed and negative
--- NOTE | 2024-10-30 10:15 | W.PN.URO.CBU ---
Today's Communication / Plan
-
Rec:
outpatient trial of stone passage: Tamsulosin daily + Naproxen 500 mg bid + straining of urine
Assessment / Plan
-
likely 1-2 mm distal left ureteral stone
no signs of systemic infection
Diagnosis
-
Date of Service: October 30, 2024
-
Patient Diagnosis:
likely 1-2 mm distal left ureteral stone
no signs of systemic infection
Subjective
-
mild pain only
Objective
-
Vital Signs
Temp Pulse Resp BP Pulse Ox
97.9 F 72 16 103/64 95
10/30/24 07:21 10/30/24 07:21 10/30/24 07:21 10/30/24 07:21 10/30/24 07:21
Intake and Output
10/29/24 10/30/24 10/31/24
06:59 06:59 06:59
Intake Total 400 / 400
Output Total 200 / 200 100 / 100
Balance 200 / 200 -100 / -100
Intake:
IV fluids (Total) 400 / 400
Output:
Urine, Voided 200 / 200 100 / 100
Other:
Number of approximated SMALL 1
amounts of urine
Laboratory Results
10/30/24 07:49
10/30/24 07:49
urine cx -- pending
Physical Exam
-
General - well developed, well nourished, no acute distress
--- NOTE | 2024-10-30 10:44 | W.DS.TRANS ---
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
-
Discharge Instructions:
Discharge Diagnosis/Procedures Symptomatic nephrolithiasis
Diet Regular
Activity As tolerated
Driving Restrictions As prior to admission
Bathing Restrictions None
Instructions:
Stand-Alone Forms:
Changes to Home Medications: No
Discharge Medications:
DC Medications w/original date entered in [employer]
ascorbic acid (vitamin C) 500 mg tablet (Vitamin C) 500 mg PO QPM 10/29/24
calcium carbonate 500 mg PO QPM 10/29/24
cholecalciferol (vitamin D3) 25 mcg (1,000 unit) tablet (Vitamin D3) 25 mcg PO QPM 10/29/24
magnesium oxide 250 mg PO QPM 10/29/24
melatonin 5 mg tablet 5 mg PO HSPRN PRN when temazepam not taken 10/29/24
polyethylene glycol 3350 17 gram oral powder packet (Miralax) 17 g PO DAILYPRN PRN constipation 10/29/24
sennosides 8.6 mg tablet (senna) 17.2 mg PO QPM 10/29/24
temazepam 15 mg capsule 15 mg PO HSPRN PRN sleep 10/29/24
therapeutic multivitamin 1 tab PO QPM 10/29/24
tamsulosin 0.4 mg capsule 0.4 mg PO HS #30 caps 10/30/24
Home Medication Changes
Pending Results: No
--- NOTE | 2024-10-30 10:46 | W.DS.TRANS ---
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
-
Discharge Instructions:
Discharge Diagnosis/Procedures Symptomatic nephrolithiasis
Diet Regular
Activity As tolerated
Driving Restrictions As prior to admission
Bathing Restrictions None
Instructions:
Stand-Alone Forms:
Changes to Home Medications: No
Discharge Medications:
DC Medications w/original date entered in [employer]
ascorbic acid (vitamin C) 500 mg tablet (Vitamin C) 500 mg PO QPM 10/29/24
calcium carbonate 500 mg PO QPM 10/29/24
cholecalciferol (vitamin D3) 25 mcg (1,000 unit) tablet (Vitamin D3) 25 mcg PO QPM 10/29/24
magnesium oxide 250 mg PO QPM 10/29/24
melatonin 5 mg tablet 5 mg PO HSPRN PRN when temazepam not taken 10/29/24
polyethylene glycol 3350 17 gram oral powder packet (Miralax) 17 g PO DAILYPRN PRN constipation 10/29/24
sennosides 8.6 mg tablet (senna) 17.2 mg PO QPM 10/29/24
temazepam 15 mg capsule 15 mg PO HSPRN PRN sleep 10/29/24
therapeutic multivitamin 1 tab PO QPM 10/29/24
tamsulosin 0.4 mg capsule 0.4 mg PO HS #30 caps 10/30/24
Home Medication Changes
Pending Results: No
[2024-10-30 10:51] VITALS: BMI 22.5
--- NOTE | 2024-10-30 11:34 | CM ---
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
PCP: Angelika Huerta
Pharmacy: [facility]
Plan; Home today no needs.
[2024-10-30 11:42] VITALS: BP 108/67
== END 2024-10-30 12:06 | disposition home or self-care (01) | DRG 694 ==
LOC: 4 WEST ACU 21:29
PROVIDERS: Clinical Nurse Specialist Family Health; Emergency Medicine; ADMITTING PHYSICIAN Internal Medicine; ATTENDING PHYSICIAN Hospitalist; CONSULT PHYSICIAN Specialist; EMERGENCY PHYSICIAN Emergency Medicine; FAMILY PHYSICIAN Family Medicine
DX: N13.2 Hydronephrosis with renal and ureteral calculous obstruction (principal); M48.54XA Collapsed vertebra, not elsewhere classified, thoracic region, initial encounter for fracture; E87.6 Hypokalemia; Z85.3 Personal history of malignant neoplasm of breast; Z88.6 Allergy status to analgesic agent; Z88.1 Allergy status to other antibiotic agents; Z88.2 Allergy status to sulfonamides; Z88.8 Allergy status to other drugs, medicaments and biological substances; M43.16 Spondylolisthesis, lumbar region; E83.42 Hypomagnesemia; K58.9 Irritable bowel syndrome, unspecified; G47.09 Other insomnia
CPT/HCPCS: 74176; 76775; 80053; 80061; 81003; 81015; 83735; 84100; 85025; 87086; 96374; 96375; 96376; 97163; 99285

== ENCOUNTER → 2024-12-01 08:45 | Outpatient (REF) | payer OTHER, SELFPAY | LOC: PAVMRI 08:45 | PROVIDERS: ATTENDING PHYSICIAN Psychiatry & Neurology Neurology; FAMILY PHYSICIAN Family Medicine | DX: M54.14 Radiculopathy, thoracic region (principal) | CPT/HCPCS: 72146 ==

== ENCOUNTER 2024-12-25 06:55 | Outpatient (RCR) | payer OTHER, SELFPAY | END 2024-12-25 23:59 | disposition home or self-care (01) | LOC: RPT 06:55 | PROVIDERS: ATTENDING PHYSICIAN Family Medicine | DX: S22.000D Wedge compression fracture of unspecified thoracic vertebra, subsequent encounter for fracture with routine healing (principal); M54.2 Cervicalgia; Z73.6 Limitation of activities due to disability; M81.0 Age-related osteoporosis without current pathological fracture; M54.50 Low back pain, unspecified; R20.0 Anesthesia of skin | CPT/HCPCS: 97110; 97112; 97162 ==

== ENCOUNTER → 2024-12-31 07:01 | Outpatient (REF) | payer OTHER, SELFPAY | LOC: MRI 3T 07:01 | PROVIDERS: ATTENDING PHYSICIAN Psychiatry & Neurology Neurology; FAMILY PHYSICIAN Family Medicine | DX: M54.2 Cervicalgia (principal); M54.12 Radiculopathy, cervical region | CPT/HCPCS: 72141 ==

== ENCOUNTER 2025-01-24 08:57 | Outpatient (RCR) | payer OTHER, SELFPAY | END 2025-01-24 23:59 | disposition home or self-care (01) | LOC: RPT 08:57 | PROVIDERS: ATTENDING PHYSICIAN Family Medicine | DX: S22.000D Wedge compression fracture of unspecified thoracic vertebra, subsequent encounter for fracture with routine healing (principal); M54.2 Cervicalgia; Z73.6 Limitation of activities due to disability; M81.0 Age-related osteoporosis without current pathological fracture | CPT/HCPCS: 97010; 97110; 97112; 97140 ==

== ENCOUNTER 2025-02-07 09:09 | Outpatient (RCR) | payer OTHER, SELFPAY | END 2025-02-07 23:59 | disposition home or self-care (01) | LOC: RPT 09:09 | PROVIDERS: ATTENDING PHYSICIAN Family Medicine | DX: S22.000D Wedge compression fracture of unspecified thoracic vertebra, subsequent encounter for fracture with routine healing (principal); M54.2 Cervicalgia; Z73.6 Limitation of activities due to disability; M81.0 Age-related osteoporosis without current pathological fracture | CPT/HCPCS: 97010; 97110; 97112 ==

== ENCOUNTER → 2025-04-01 14:50 | Outpatient (REF) | payer OTHER, SELFPAY | LOC: HWWDC 14:50 | PROVIDERS: ATTENDING PHYSICIAN Obstetrics & Gynecology; FAMILY PHYSICIAN Family Medicine | DX: Z12.31 Encounter for screening mammogram for malignant neoplasm of breast (principal) | CPT/HCPCS: 77063; 77067 ==

== ENCOUNTER → 2025-06-23 09:20 | Outpatient (REF) | payer OTHER, SELFPAY | LOC: RAD 09:20 | PROVIDERS: ATTENDING PHYSICIAN Internal Medicine Hematology & Oncology; FAMILY PHYSICIAN Family Medicine | DX: C50.512 Malignant neoplasm of lower-outer quadrant of left female breast (principal); M80.00XD Age-related osteoporosis with current pathological fracture, unspecified site, subsequent encounter for fracture with routine healing; C43.39 Malignant melanoma of other parts of face; M81.8 Other osteoporosis without current pathological fracture; Z51.11 Encounter for antineoplastic chemotherapy; R22.2 Localized swelling, mass and lump, trunk | CPT/HCPCS: 36415; 76604; 78306; A9503 ==

== ENCOUNTER → 2025-07-07 12:21 | Outpatient (REF) | payer OTHER, SELFPAY ==
[2025-07-07 13:21] VITALS: BP 139/83; BP_SYST 87
== END ==
LOC: RADI 12:21
PROVIDERS: ATTENDING PHYSICIAN Internal Medicine Hematology & Oncology; FAMILY PHYSICIAN Family Medicine
DX: R59.0 Localized enlarged lymph nodes (principal); Z85.3 Personal history of malignant neoplasm of breast
CPT/HCPCS: 38505; 76942; 88173; 88305

== ENCOUNTER → 2025-08-25 07:10 | Outpatient (REF) | payer OTHER, SELFPAY | LOC: MRI 3T 07:10 | PROVIDERS: ATTENDING PHYSICIAN Family Medicine | DX: M54.12 Radiculopathy, cervical region (principal) | CPT/HCPCS: 72141 ==

== ENCOUNTER → 2025-08-26 09:44 | Outpatient (REF) | payer OTHER, SELFPAY | LOC: HWRAD 09:44 | PROVIDERS: ATTENDING PHYSICIAN Family Medicine | DX: M25.511 Pain in right shoulder (principal); M25.512 Pain in left shoulder | CPT/HCPCS: 73030 ==